=== PATIENT | male | born 1950 | race Caucasian/White ===

== ENCOUNTER 2021-05-06 09:53 | Emergency (ER) | payer MEDICARE ==
[~2021-05-06] VITALS: Ht 182.9 cm; Wt 106.6 kg
[~2021-05-06 09:53] MED LIST: NORCO 5-325 TA1 EACH PO; ZANTAC 150 MG150 MG PO
== END 2021-05-06 12:48 | disposition home or self-care (01) ==
LOC: ER1 09:53
DX: U07.1 COVID-19 (principal); Z23 Encounter for immunization; I10 Essential (primary) hypertension; E78.5 Hyperlipidemia, unspecified; Z90.49 Acquired absence of other specified parts of digestive tract
CPT/HCPCS: 99283; M0243

== ENCOUNTER → 2021-05-15 | Outpatient (CLI) | payer MEDICARE ==
[2021-05-15 09:05] LABS: HEMOGLOBIN 14.4 gm/dl (14.0-17.5); RED BLOOD COUNT 4.63 M/UL (4.20-5.50); WHITE BLOOD COUNT 6.1 K/UL (4.5-11.0)
[2021-05-15 09:36] LABS: BUN/CREATININE RATIO 24 (0-10)
== END ==
LOC: LAB 08:20
PROVIDERS: Internal Medicine
DX: E78.5 Hyperlipidemia, unspecified (principal)
CPT/HCPCS: 36415; 80053; 80061; 85027

== ENCOUNTER 2021-11-21 09:00 | Emergency (ER) | payer OTHER, MEDICARE ==
[2021-11-21 11:44] LABS: HEMOGLOBIN 13.6 gm/dl (14.0-17.5); RED BLOOD COUNT 4.34 M/UL (4.20-5.50)
[2021-11-21 12:14] LABS: BUN/CREATININE RATIO 16 (0-10)
== END 2021-11-21 13:45 | disposition short-term general hospital (02) ==
LOC: ER1 09:00
PROVIDERS: Physician Assistant
DX: I62.00 Nontraumatic subdural hemorrhage, unspecified (principal); I10 Essential (primary) hypertension; E78.5 Hyperlipidemia, unspecified
CPT/HCPCS: 70450; 80053; 80061; 81001; 82550; 82553; 83605; 83735; 84484; 85025; 85610; 99285